=== PATIENT | female | born 1990 | race Caucasian/White ===

== ENCOUNTER 2016-05-02 00:53 | Emergency (ER) | payer OTHER ==
[2016-05-02 01:59] LABS: BILIRUBIN 3+ mg/dL (NEGATIVE); BLOOD NEGATIVE Ery/uL (NEGATIVE); CLARITY SLIGHTLY HAZY (CLEAR); COLOR ORANGE (YELLOW); GLUCOSE (U) TRACE mg/dL (NORMAL); KETONE (U) NEGATIVE (NEGATIVE); LEUKOCYTES TRACE Leu/uL (NEGATIVE); NITRITE POSITIVE (NEGATIVE); PROTEIN TRACE (LOW) mg/dL (NEGATIVE); SPECIFIC GRAVITY 1.025 (1.001-1.030)
[2016-05-02 02:00] LABS: BASOPHIL 0.5 % (0-2); EOSINOPHIL 0.9 % (0-5); HCT 38.6 % (37.0-47.0); HGB 12.5 g/dl (12.5-16.0); LYMPHOCYTE 33.1 % (15-48); MCH 28.7 pg (25.0-31.0); MCHC 32.4 g/dL (32.0-36.0); MCV 88.5 fL (78.0-100.0); MONOCYTE 5.2 % (0-12); MPV 11.2 fL (6.0-9.5); NEUTROPHIL 60.3 % (41-80); PLT 239 K/uL (150-400); RBC 4.36 M/uL (4.20-5.40); RDW 13.8 % (11.5-14.0); WBC 4.4 K/uL (4.0-10.5)
[2016-05-02 02:10] LABS: BACTERIA 1+; MUCOUS TRACE
[2016-05-02 02:37] LABS: ALBUMIN 3.8 g/dL (3.5-5.0); BILIRUBIN - TOTAL 3.6 mg/dL (0.1-1.0); CREATININE 0.7 mg/dL (0.5-1.0); GLOBULIN (CALCULATION) 2.5 g/dL (2.2-4.2); POTASSIUM 4.3 mmol/L (3.5-5.1); TOTAL PROTEIN 6.3 g/dL (6.4-8.3)
== END 2016-05-02 06:14 | disposition other institution (70) ==
LOC: FER 00:53
PROVIDERS: Emergency Medicine Emergency Medical Services
DX: N30.90 Cystitis, unspecified without hematuria (principal); K83.1 Obstruction of bile duct; J90 Pleural effusion, not elsewhere classified; G43.909 Migraine, unspecified, not intractable, without status migrainosus; E86.9 Volume depletion, unspecified; Z79.899 Other long term (current) drug therapy
CPT/HCPCS: 36415; 71275; 80053; 81001; 82150; 83690; 85025; 87088; J1170; J2405; Q9967